=== PATIENT | female | born 1995 | race Hispanic/Latino ===

== ENCOUNTER 2019-04-13 15:23 | Outpatient (CLI) | payer BC ==
--- NOTE | 2019-04-13 15:52 | RAD ---
XR Ankle Rt 3 View STANDARD History: Pain Comparison: None. Findings: No acute fracture or malalignment. Soft tissues are unremarkable. Impression: No acute fracture or malalignment.
--- NOTE | 2019-04-13 15:53 | RAD ---
XR Foot Rt 3 View STANDARD History: Pain Comparison: None. Findings: No acute fracture or malalignment. Bipartite medial hallux sesamoid versus old fracture. So ft tissues are unremarkable. Impression: Bipartite medial hallux sesamoid versus an old fracture. No acute abnormality. No periost itis or erosions
== END 2019-04-13 15:24 | disposition home or self-care (01) ==
LOC: BICRAD 15:23
PROVIDERS: ATTEND Family Medicine
DX: M79.671 Pain in right foot (principal)

== ENCOUNTER 2019-05-04 12:54 | Outpatient (CLI) | payer BC ==
[~2019-05-04 12:54] MED LIST: Gadobenate Dimeglumine 529 MG/1 ML (20ML VIAL) ONE
--- NOTE | 2019-05-04 16:02 | MRI ---
MRI OF THE RIGHT HINDFOOT WITHOUT CONTRAST: INDICATION: History of a pain with blister overlying the plantar aspect of the heel which started out as a bruise and has been present for 5 weeks. TECHNIQUE: Multiplanar, multisequence MRI images were obtained of the right hindfoot with and without contrast u tilizing 16 cc of blueKiwi. COMPARISON: Comparisons are made with radiographs dated 04/13/2019. FINDINGS: The ATFL, PTFL, calcaneofibular, and syndesmotic ligaments appear intact. The deltoid ligament appea rs intact. No osteochondral defect is evident. No joint effusion is noted. No bone marrow signal a bnormality is evident. The medial and lateral flexor tendons appear within normal limits. The exten sor tendons are normal-appearing. There is mild increased T2 signal surrounding the distal Achilles tendon which may reflect a mild amount of Achilles paratenonitis. A surface marker is placed within the palpable region of interest. There is some slight increased T2 signal involving the skin and und erlying heel fat pad near the surface marker. There is mild enhancement of the skin within this kika on. No drainable fluid collection is evident. Sinus tarsi has a normal signal intensity. IMPRESSION: 1. Findings of inflammation or superficial infection involving the heel pad without evidence of a dr ainable fluid collection. 2. No bone marrow signal abnormality is evident. 3. Mild increased T2 signal surrounding the distal Achilles tendon may reflect mild Achilles paraten onitis. POS: CET
== END 2019-05-04 12:55 | disposition home or self-care (01) ==
LOC: SCSMRI 12:54
PROVIDERS: ATTEND Podiatrist
DX: M66.871 Spontaneous rupture of other tendons, right ankle and foot (principal); M79.671 Pain in right foot
CPT/HCPCS: A9577

== ENCOUNTER 2020-01-07 13:30 | Outpatient (CLI) | payer BC ==
--- NOTE | 2020-01-07 16:01 | MRI ---
Exam: Left ankle MRI without IV contrast: HISTORY: Sprain of ankle sprain of the ligament of left ankle prior surgery. Multiplanar, multisequence MRI examination of the left ankle is performed. There are several postsurg ical anchors in the distal fibula evidence for prior Brostrom postsurgical procedure. There is some thickening and minimal increased signal in the intact-appearing repaired anterior talofibular ligamen t. The calcaneofibular ligament appears intact. Peroneus tendons appear intact. Flexor and extensor tendons are intact. Achilles tendon and plantar fascia are unremarkable. No talar dome osteochondral lesion. Sinus Tarsi and spring ligament regions are unremarkable. No significant acute abnormal marrow signal. IMPRESSION: Evidence for a Brostrom type postsurgical repair of the anterior talofibular ligament which is intact but appears to be somewhat thickened. Intact calcaneofibular ligament. No evidence for other significant acute internal derangement.
== END 2020-01-07 13:31 | disposition home or self-care (01) ==
LOC: SCSMRI 13:30
DX: S93.492D Sprain of other ligament of left ankle, subsequent encounter (principal); Z98.890 Other specified postprocedural states